=== PATIENT | female | born 1995 | race Caucasian/White ===

== ENCOUNTER → 2018-06-15 | Outpatient (CLI) | payer BC ==
[~2018-06-15] MED LIST: IOPAMIDOL 76% 75 ML INFUS BTL 75 ML ONE; NS(*) 0.9% 50 ML BAG 50 ML ONE; OMEP-137 PO; ONDA4TAB PO
--- NOTE | 2018-06-15 20:40 | RADIOLOGY IMAGING REPORT ---
FAC[facility] PATIENT NAME: Nakia Hernandez : 1995 MR: [id number] V: [id number] EXAM DATE: ORDERING PHYSICIAN: ASM MCPHERSON TECHNOLOGIST: Location: [facility] [place] Patient: Nakia Hernandez : 1995 Visit/Account:[id number] Date of Sevice: 06/15/2018 EXAMINATION: CTA of the chest with IV contrast HISTORY: Chest pain. Shortness of breath. Elevated d-dimer. TECHNIQUE: Pulmonary embolus protocol - Thin axial CT images of the chest were obtained with IV con trast during maximal pulmonary arterial opacification. Reconstruction of the source data includes mul tiplanar 2D coronal and sagittal reconstructed images, and 3D coronal and sagittal MIP images. Repres entative images have been stored on PACS. One of the following dose optimization techniques was utilized in the performance of this exam: Autom ated exposure control; adjustment of the mA and/or kV according to the patient's size; or use of an i terative reconstruction technique. Specific details can be referenced in the facility's radiology C T exam operational policy. Contrast: 75 mL of IV Isovue-[id number]. COMPARISON: None. FINDINGS: Pulmonary arteries: The pulmonary arteries are well opacified, without suspicious filling defect. Heart, aorta, and great vessels: Normal caliber thoracic aorta, without aneurysm or dissection. Norm al heart size. No pericardial effusion. Lungs and pleura: The lungs are clear. No focal consolidation. No pleural effusion or pneumothorax . The central airways are patent. Mediastinum and na: Negative. Visualized upper abdomen: Unremarkable. Chest wall: Negative. Bones: Negative. IMPRESSION: 1. No evidence of pulmonary embolism. 2. No other acute findings in the chest. The lungs are clear. Report Dictated By: Servando Chopra MD at 06/15/2018 8:23 PM Report E-Signed By: Servando Chopra MD at 06/15/2018 8:37 PM WSN:[id number]
== END ==
LOC: CT 18:52
PROVIDERS: ATTEND Nurse Practitioner Family
DX: R07.9 Chest pain, unspecified (principal)
CPT/HCPCS: J7050; Q9967; 71275

== ENCOUNTER → 2018-06-15 | Outpatient (REF) | payer BC ==
[~2018-06-15] MED LIST changes: -IOPAMIDOL 76% 75 ML INFUS BTL 75 ML ONE; -NS(*) 0.9% 50 ML BAG 50 ML ONE
[2018-06-15 18:12] LABS: PLATELET COUNT, AUTOMATED 374 K/uL (150-450)
== END ==
PROVIDERS: ATTEND Nurse Practitioner Family
DX: R07.9 Chest pain, unspecified (principal)
CPT/HCPCS: 82040; 82247; 82310; 82374; 82435; 82565; 82947; 84075; 84132; 84155; 84295; 84450; 84460; 84484; 84520; 85025; 85379